=== PATIENT | male | born 1940 ===

== ENCOUNTER 2020-01-29 09:44 | Outpatient (CLI) | payer MEDICARE ==
--- NOTE | 2020-01-29 10:41 | ULT ---
EXAM: US Renal Bilateral STANDARD PROVIDED CLINICAL HISTORY: Chronic kidney disease COMPARISON: None FINDINGS: Right kidney measures approximately 11.2 x 6.3 x 5.5 cm and demonstrates no evidence for hydronephros is, sonographically apparent calculus or solid mass. Simple appearing cyst is demonstrated involving the right kidney measuring about 2.1 cm. Left kidney measures approximately 10.6 x 4.6 x 5.2 cm and demonstrates no evidence for hydronephrosi s, sonographically apparent calculus or solid mass. Simple appearing renal cysts are seen, largest measuring about 1.7 cm. Urinary bladder is decompressed and not well evaluated. IMPRESSION: No evidence for hydronephrosis.
== END 2020-01-29 09:45 | disposition home or self-care (01) ==
LOC: BICULT 09:44
PROVIDERS: ATTEND Internal Medicine Nephrology
DX: N18.3 Chronic kidney disease, stage 3 (moderate) (principal)
CPT/HCPCS: 76770